=== PATIENT | male | born 1955 | race Caucasian/White ===

== ENCOUNTER 2017-05-17 03:10 | Emergency (ER) | payer MEDICAID ==
[2017-05-17 03:11] VITALS: BMI 36.9
[2017-05-17 03:34] VITALS: BP 146/101; PULSE 82; RESP 17; TEMP 97.6; O2SAT 97
--- NOTE | 2017-05-17 03:38 | ED PDOC ---
Arrival/HPI - General Chief Complaint: Abnormal Skin Integrity Time Seen by Provider: 05/17/17 03:17 Historian: Patient - History of Present Illness Narrative History of Present Illness (Text): 05/17/17 03:35 Marlon uD is a 61 year old male, whose past medical history includes diabetes, who presents to the Emergency department complaining of right forearm rash. Patient was seen and evaluated by his PMD for similar complaints and diagnosed with poison gissel, which he [place]. Patient was prescribed antihistamine steroid cream with some relief. Patient was also placed on a small dose of prednisone. Patient also complaining of itching to the area. Patient denies any other areas of rash. Patient denies any fever, weakness/numbness/tingling in the extremity, or any other complaints. PMD: Dr. Patrick Covarrubias Symptom Onset: Gradual Symptom Course: Unchanged Activities at Onset: Light Context: Home Past Medical History - Provider Review Nursing Documentation Reviewed: Yes - Infectious Disease Hx of Infectious Diseases: None - Cardiac Hx Cardiac Disorders: Yes - Pulmonary Hx Respiratory Disorders: Yes Hx Chronic Obstructive Pulmonary Disease (COPD): Yes Hx Emphysema: Yes - Neurological Hx Neurological Disorder: No - HEENT Hx HEENT Disorder: No - Renal Hx Renal Disorder: No - Endocrine/Metabolic Hx Endocrine Disorders: Yes Hx Diabetes Mellitus Type 2: Yes - Hematological/Oncological Hx Blood Disorders: No - Integumentary Hx Dermatological Disorder: No - Musculoskeletal/Rheumatological Hx Falls: No - Gastrointestinal Hx Gastrointestinal Disorders: No - Genitourinary/Gynecological Hx Genitourinary Disorders: No - Psychiatric Hx Psychophysiologic Disorder: No Hx Substance Use: No Family/Social History - Physician Review Nursing Documentation Reviewed: Yes Family/Social History: Unknown Family HX Smoking Status: Former Smoker Hx Alcohol Use: No Hx Substance Use: No Allergies/Home Meds Allergies/Adverse Reactions: Allergies ibuprofen Allergy (Verified 05/17/17 03:30) ANAPHYLAXIS Home Medications: Home Meds Medication Instructions Recorded Confirmed Atorvastatin [Lipitor] 80 mg PO DAILY 11/17/16 11/17/16 Ergocalciferol (Vitamin D2) 50,000 unit PO QWK 11/17/16 11/17/16 [Vitamin D2] Fluticasone/Salmeterol 500/50 1 puff IH BID 11/17/16 11/17/16 [Advair Diskus 500/50] MetFORMIN [glucoPHAGE] 1,000 mg PO DAILY 11/17/16 11/17/16 Tiotropium [Spiriva] 18 mcg IH DAILY 11/17/16 11/17/16 Review of Systems - Physician Review All systems were reviewed & negative as marked: Yes - Review of Systems Constitutional: Normal. absent: Fevers Eyes: Normal ENT: Normal Respiratory: Normal. absent: SOB, Cough Cardiovascular: Normal. absent: Chest Pain Gastrointestinal: Normal. absent: Abdominal Pain, Diarrhea, Nausea, Vomiting Genitourinary Male: Normal. absent: Dysuria, Frequency, Hematuria, Urinary Output Changes Musculoskeletal: Normal. absent: Back Pain, Neck Pain Skin: Rash (+right forearm rash), Pruritis Neurological: Normal. absent: Headache, Dizziness Endocrine: Normal Hemo/Lymphatic: Normal Psychiatric: Normal Physical Exam Vital Signs Reviewed: Yes Vital Signs Temp Pulse Resp BP Pulse Ox 05/17/17 03:33 97.6 F 82 17 146/101 H 97 Temperature: Afebrile Blood Pressure: Normal Pulse: Regular Respiratory Rate: Normal Appearance: Positive for: Well-Appearing, Non-Toxic, Comfortable Pain Distress: None Mental Status: Positive for: Alert and Oriented X 3 - Systems Exam Head: Present: Atraumatic, Normocephalic Pupils: Present: PERRL Extroacular Muscles: Present: EOMI Conjunctiva: Present: Normal Mouth: Present: Moist Mucous Membranes Upper Extremity: Present: Normal ROM, NORMAL PULSES, Neurovascularly Intact, Capillary Refill < 2s, Other (Few scattered vesicular and crusted lesions in linear forearm to right forearm. Few small vesicular to right 2nd and 3rd digits ). No: Cyanosis, Edema, Temperature Abnormalties, Deformity Lower Extremity: Present: Normal Inspection. No: Edema Neurological: Present: GCS=15, CN II-XII Intact, Speech Normal Skin: Present: Warm, Dry, Normal Color. No: Rashes Psychiatric: Present: Alert, Oriented x 3, Normal Insight, Normal Concentration Medical Decision Making ED Course and Treatment: 05/17/17 03:35 Impression: 61 year old male complaining of right forearm rash with associated pruritus. Diagnosed with poison gissel rash by PMD. Differential Diagnosis included but are not limited to: poison gissel Plan: -- Benadryl -- Decadron -- Reassess and disposition Progress Notes: On reevaluation the patient is in no acute distress. I have discussed the results and plan with the patient, who expresses understanding. Patient given the opportunity to ask question, all questions were answered and there is agreement with the plan to discharge the patient home. Patient is stable for discharge. Patient was instructed to follow up with physician/clinic in 1-2 days or return if symptoms persist/worsen or new concerning symptoms arise. - Medication Orders Current Medication Orders: Discontinued Medications Dexamethasone (Decadron Inj) 10 mg IM ONCE ONE Stop: 05/17/17 03:48 Last Admin: 05/17/17 04:06 Dose: 10 mg Diphenhydramine HCl (Benadryl) 50 mg PO ONCE STA Stop: 05/17/17 03:48 Last Admin: 05/17/17 04:06 Dose: 50 mg - Scribe Statement The provider has reviewed the documentation as recorded by the Carlota Arriaga Provider Scribe Attestation: All medical record entries made by the Scribe were at my direction and personally dictated by me. I have reviewed the chart and agree that the record accurately reflects my personal performance of the history, physical exam, medical decision making, and the department course for this patient. I have also personally directed, reviewed, and agree with the discharge instructions and disposition. Disposition/Present on Arrival - Present on Arrival Any Indicators Present on Arrival: No History of DVT/PE: No History of Uncontrolled Diabetes: Yes Urinary Catheter: No History of Decub. Ulcer: No History Surgical Site Infection Following: None - Disposition Have Diagnosis and Disposition been Completed?: Yes Diagnosis: Poison gissel dermatitis Disposition: HOME/ ROUTINE Disposition Time: 03:49 Patient Plan: Discharge Condition: STABLE Discharge Instructions (ExitCare): Poison Gissel (ED) Additional Instructions: Continue meds as prescribed/apply calamine lotion to keep areas dry/follow up with your doctor this week Forms: [employer] ([place])
== END 2017-05-17 04:09 | disposition home or self-care (01) ==
LOC: ED 03:10
DX: L23.7 Allergic contact dermatitis due to plants, except food (principal)
CPT/HCPCS: 96372; 99282; J1100